=== PATIENT | female | born 1995 | race Caucasian/White ===

== ENCOUNTER 2025-07-21 14:15 | Outpatient (CLI) | payer OTHER, SELFPAY ==
--- NOTE | 2025-07-21 14:19 | XR_ITS ---
WS: [id number] Exam: XR shoulder LT min 2V* [id number] Date/Time of Exam: 07/21/2025 2:38 PM Reason For Exam: M25.512 - Pain in left shoulder DLP: No fracture. The joints are preserved. Normal soft tissues. XR/XR shoulder LT min 2V* [id number] IMPRESSION: 1. Normal LEFT shoulder.
== END 2025-07-21 14:16 | disposition home or self-care (01) ==
LOC: RAD 14:16
PROVIDERS: Visit Provider Family Medicine
DX: M25.512 Pain in left shoulder (principal); S49.92XA Unspecified injury of left shoulder and upper arm, initial encounter; V89.2XXA Person injured in unspecified motor-vehicle accident, traffic, initial encounter
CPT/HCPCS: 73030

== ENCOUNTER 2025-08-26 09:42 | Outpatient (CLI) | payer OTHER, SELFPAY ==
--- NOTE | 2025-08-26 10:15 | MR_ITS ---
WS: [id number] MRI LEFT SHOULDER HISTORY: M25.512 - Pain in left shoulder COMPARISON: Radiograph 07/21/2025 TECHNIQUE: Multiplanar sequences of the shoulder joint are submitted. No significant AC joint arthritis. Very mild downsloping of the acromion with a 3 mm enthesopathy along the undersurface. Minimal subacromial impingement. Tiny amount of fluid in the subdeltoid bursa. No os acromion. Biceps tendon is subluxed from the bicipital groove. There is no signal abnormality in the biceps tendon. Normal position of the humeral head. No rotator cuff muscle edema or atrophy. No tendinopathy. Thin linear signal in the superior labrum. No definite tear is identified. There is a very small amount of fluid near the coracoid process. Axillary pouch is normal. No thickening of the coracohumeral ligament. MR/MR shoulder LT wo con* [id number] IMPRESSION: 1. No acute fracture or marrow edema. 2. No rotator cuff tendon tear. 3. Mild subacromial impingement upon the distal supraspinatus tendon. 4. Biceps tendon is subluxed from the bicipital groove. There is also small am ount of fluid near the coracoid process suggesting an acute inflammatory respon se.
== END 2025-08-26 09:43 | disposition home or self-care (01) ==
LOC: RAD 09:43
PROVIDERS: Visit Provider Family Medicine
DX: M25.512 Pain in left shoulder (principal); G89.29 Other chronic pain; S49.92XS Unspecified injury of left shoulder and upper arm, sequela; V89.2XXS Person injured in unspecified motor-vehicle accident, traffic, sequela; M75.42 Impingement syndrome of left shoulder; M75.21 Bicipital tendinitis, right shoulder
CPT/HCPCS: 73221

== ENCOUNTER → 2025-08-29 08:22 | Outpatient (BNVA) | payer OTHER, SELFPAY | PROVIDERS: PCP Family Medicine; Visit Provider Orthopaedic Surgery | DX: M75.42 Impingement syndrome of left shoulder (principal); S43.082A Other subluxation of left shoulder joint, initial encounter; X58.XXXA Exposure to other specified factors, initial encounter | CPT/HCPCS: 73030 ==